=== PATIENT | male | born 1950 | race Caucasian/White ===

== ENCOUNTER 2016-10-14 10:03 | Emergency (ER) | payer MEDICARE, BC, OTHER ==
[2016-10-14] MEDS ORDERED: ALBUTEROL SULFATE 0.083% NEB 2.5 MG/3 ML AMPUL NEB ONE ×2 (10:21→12:01)
--- NOTE | 2016-10-14 10:23 | ER Document Report ---
ED Medical Screen (RME) - General Stated Complaint: SIDE PAIN Notes: Patient states he has been coughing for the last 4 days, and is feeling pain on his right side rib area. Patient is a smoker. Denies fever. I have greeted and performed a rapid initial assessment of this patient. A comprehensive ED assessment and evaluation of the patient, analysis of test results and completion of the medical decision making process will be conducted by additional ED providers. TRAVEL OUTSIDE OF THE [place] IN LAST 30 DAYS: No - Related Data Allergies/Adverse Reactions: Penicillins Allergy (Verified 10/14/16 10:18) Past Medical History - Past Medical History Cardiac Medical History: Reports: Hx Heart Attack, Hx Hypercholesterolemia, Hx Hypertension Physical Exam - Respiratory Notes: No respiratory distress noted. Expiratory wheezing on auscultation. Right lower lateral ribs tender on palpation.
--- NOTE | 2016-10-14 11:55 | ER Document Report ---
ED General - General Mode of Arrival: Ambulatory Information source: Patient TRAVEL OUTSIDE OF THE [place] IN LAST 30 DAYS: No - HPI Patient complains to provider of: Right Rib Pain Onset: Yesterday Onset/Duration: Sudden, Persistent Quality of pain: Stabbing Severity: Severe Associated symptoms: Nonproductive cough. denies: Chills, Fever - General Chief Complaint: Rib Pain Stated Complaint: SIDE PAIN Notes: Patient is a 66-year-old male presenting to the emergency department concerned of right rib pain onset yesterday when coughing. Patient states that he has had a cough for the past 4-5 days. Patient denies any fever or chills, but admits to some Chest congestion for which he took Mucinex and his nebulizer. Patient states that his cough has improved, but his rib pain has worsened. (JEB MENENDEZ) - Related Data Allergies/Adverse Reactions: Penicillins Allergy (Verified 10/14/16 10:18) Past Medical History - General Information source: Patient - Social History Smoking Status: Current Every Day Smoker Chew tobacco use (# tins/day): No Frequency of alcohol use: None Drug Abuse: Marijuana Family History: Reviewed & Not Pertinent Patient has suicidal ideation: No Patient has homicidal ideation: No - Past Medical History Cardiac Medical History: Reports: Hx Heart Attack, Hx Hypercholesterolemia, Hx Hypertension Renal/ Medical History: Denies: Hx Peritoneal Dialysis - Immunizations Hx Pneumococcal Vaccination: 04/19/14 Review of Systems - Review of Systems Constitutional: No symptoms reported EENT: No symptoms reported Cardiovascular: No symptoms reported Respiratory: No symptoms reported Gastrointestinal: No symptoms reported Genitourinary: No symptoms reported Male Genitourinary: No symptoms reported Musculoskeletal: See HPI, Other - Right rib pain Skin: No symptoms reported Hematologic/Lymphatic: No symptoms reported Neurological/Psychological: No symptoms reported -: Yes All other systems reviewed and negative Physical Exam - General General appearance: Appears well, Alert - HEENT Head: Normocephalic, Atraumatic Eyes: Normal Pupils: PERRL - Respiratory Respiratory status: No respiratory distress Chest status: Nontender Breath sounds: Normal - Cardiovascular Rhythm: Regular Heart sounds: Normal auscultation Murmur: No - Abdominal Distension: No distension Bowel sounds: Normal Tenderness: Tender - Tenderness over right 11th rib. - Back Back: Normal, Nontender - Extremities General upper extremity: Normal inspection, Nontender General lower extremity: Normal inspection, Nontender - Neurological Neuro grossly intact: Yes Cognition: Normal Orientation: AAOx4 [place] Coma Scale Eye Opening: Spontaneous [place] Coma Scale Verbal: Oriented [place] Coma Scale Motor: Obeys Commands Tonja Coma Scale Total: 15 Speech: Normal - Psychological Associated symptoms: Normal affect, Normal mood - Skin Skin Temperature: Warm Skin Moisture: Dry Skin Color: Normal Course - Re-evaluation Re-evalutation: 10/14/16 19:59 I personally performed the services described in the documentation, reviewed and edited the documentation which was dictated to my scribe in my presence, and it accurately records my words and actions. presents emergency Department chief plain intermittent cough for the past 4 days he said he had a coughing spell 2 days ago he felt pain in his right rib cage area he says it hurts whenever he touches it. He says he has nebulizer machines at home for COPD denies a history of asthma is not acutely short of breath denies any chest pain or exertional shortness of breath. Does have a cardiac history but vehemently denies any symptoms related to that. EKG was stable chest x-ray with ribs shows no pneumonia or rib fracture. He's pulse oxing well. Don't see any evidence of shingles and send him home on some pain medications of prednisone follow up with his primary care physician in 2-3 days and discussed reasons For ed return sooner 10/14/16 20:00 (CARLA CHACON) - Vital Signs Vital signs: Temp Pulse Resp BP Pulse Ox 97.7 F 67 18 142/79 H 96 10/14/16 12:05 10/14/16 12:05 10/14/16 12:05 10/14/16 12:05 10/14/16 12:05 Discharge - Discharge Clinical Impression: Bronchitis, Rib pain on right side Condition: Stable Disposition: HOME, SELF-CARE Instructions: Oral Narcotic Medication ([facility]), Chest Wall Pain ([facility]) Additional Instructions: Bronchitis with right rib pain You have acute bronchitis. This disease is an infection or inflammation of the air passageways in your lungs. Symptoms usually include cough, low grade fever, shortness of breath, and wheezing. The cough usually persists for a couple of weeks. Most cases of bronchitis get better without antibiotics. We prescribe antibiotics when we believe bacteria are damaging your airways, or if there's high risk the bronchitis will worsen into pneumonia. Increase your fluid intake. A cool mist humidifier may make your lungs more comfortable. An expectorant (cough medicine that loosens phlegm) can help. If you smoke, STOP!!! Recovery from bronchitis can be somewhat slow, but you should see improvement within a day or two. Repeated episodes of bronchitis may result in lung damage -- for example, chronic bronchitis, recurrent pneumonias, or emphysema. Call the doctor if you develop increasing fever, shortness of breath, chest pain, bloody sputum, or otherwise worsen. If you have not improved at all after several days, contact the physician. Prescriptions: Hydrocodone/Acetaminophen [Emin[place] 5-325 mg Tablet] 1 tab PO TID #15 tablet Prednisone [Deltasone 20 mg Tablet] 3 tab PO DAILY 5 Days Referrals: KODY DENNIS MD [ACTIVE STAFF] - Follow up in 3-5 days Scribe Documentation - Scribe Written by Kathy:: Jeb Menendez 10/14/2016 [id number] acting as scribe for :: Dr. Chacon
[2016-10-14 12:07] VITALS: BP 142/79
--- NOTE | 2016-10-14 20:26 | EKG REPORT ---
SEVERITY:- BORDERLINE ECG - SINUS RHYTHM PROBABLE LEFT ATRIAL ABNORMALITY : Confirmed by: Marlon Doshi 14-Oct-2016 20:25:20
== END 2016-10-14 12:05 | disposition home or self-care (01) ==
LOC: ER 10:03
DX: J40 Bronchitis, not specified as acute or chronic (principal); R07.81 Pleurodynia; R05 Cough; R09.89 Other specified symptoms and signs involving the circulatory and respiratory systems; F17.200 Nicotine dependence, unspecified, uncomplicated
CPT/HCPCS: 93005; 93010; 94640; 99283